=== PATIENT | male | born 1980 | race Caucasian/White ===

== ENCOUNTER 2017-10-26 12:28 | Emergency (ER) | payer OTHER ==
[2017-10-26 12:35] VITALS: TEMP 99.2; BMI 35.7
--- NOTE | 2017-10-26 12:42 | PDOC ---
History of Present Illness - General Chief Complaint: Pain Stated Complaint: ABD PAIN Time Seen by Provider: 10/26/17 12:42 - History of Present Illness Initial Comments: 10/26/17 12:50 Mr. Loera is a 37 yo male w/ pmh of HTN who presents for evaluation of 2 week history of RLQ abdominal pain. Patient reports it has been intermittent over this time period however became worse last night and woke him up from sleep. Patient endorses some diarrhea yesterday as well as some nausea and vomiting today. Patient reports vomit is non-bloody and consists of food he has eaten only. Diarrhea is likewise non-bloody and consists of loose stool. The patient denies chest pain, shortness of breath, headache and dizziness. Denies fever, chills, and constipation. Denies dysuria, frequency, urgency and hematuria. Allergies: NKDA Past History - Past Medical History Allergies/Adverse Reactions: Allergies Allergy/AdvReac Type Severity Reaction Status Date / Time No Known Allergies Allergy Verified 10/26/17 12:35 Home Medications: Ambulatory Orders Ciprofloxacin [Cipro -] 500 mg PO Q12H #10 tablet 10/26/17 COPD: No HTN: Yes - Suicide/Smoking/Psychosocial Hx Smoking History: Never smoked Substance Use Type: Alcohol Review of Systems - Review of Systems Comments:: 10/26/17 13:00 GENERAL/CONSTITUTIONAL: No fever or chills. No weakness. HEAD, EYES, EARS, NOSE AND THROAT: No change in vision. No ear pain or discharge. No sore throat. CARDIOVASCULAR: No chest pain or shortness of breath RESPIRATORY: No cough, wheezing, or hemoptysis. GASTROINTESTINAL:+RLQ pain w/ N/V/D as described. GENITOURINARY: No dysuria, frequency, or change in urination. MUSCULOSKELETAL: No joint or muscle swelling or pain. No neck or back pain. SKIN: No rash NEUROLOGIC: No headache, vertigo, loss of consciousness, or change in strength/ sensation. ENDOCRINE: No increased thirst. No abnormal weight change HEMATOLOGIC/LYMPHATIC: No anemia, easy bleeding, or history of blood clots. ALLERGIC/IMMUNOLOGIC: No hives or skin allergy. *Physical Exam - Vital Signs Last Vital Signs Temp Pulse Resp BP Pulse Ox 99.2 F 118 H 20 157/102 99 10/26/17 12:32 10/26/17 12:32 10/26/17 12:32 10/26/17 12:32 10/26/17 12:32 - Physical Exam Comments: 10/26/17 13:00 GENERAL: Awake, alert, and fully oriented, in no acute distress HEAD: No signs of trauma, normocephalic, atraumatic EYES: PERRLA, EOMI, sclera anicteric, conjunctiva clear ENT: Auricles normal inspection, hearing grossly normal, nares patent, oropharynx clear without exudates. Moist mucosa NECK: Normal ROM, supple, no lymphadenopathy, JVD, or masses LUNGS: No distress, speaks full sentences, clear to auscultation bilaterally HEART: Regular rate and rhythm, normal S1 and S2, no murmurs, rubs or gallops, peripheral pulses normal and equal bilaterally. ABDOMEN: +RLQ TTP. Soft, normoactive bowel sounds. No guarding, no rebound. No masses EXTREMITIES: Normal inspection, Normal range of motion, no edema. No clubbing or cyanosis. NEUROLOGICAL: Cranial nerves II through XII grossly intact. Normal speech, normal gait, no focal sensorimotor deficits SKIN: Warm, Dry, normal turgor, no rashes or lesions noted. ED Treatment Course - LABORATORY CBC & Chemistry Diagram: 10/26/17 12:56 10/26/17 12:56 Medical Decision Making - Medical Decision Making 10/26/17 15:52 Mr. Loera is a 37 yo male w/ pmh as described who presents for evaluation of RLQ pain. Patient noted to have thick walled urinary bladder w/ concern for cystitis and small right sided hydrocele however no appendicitis or other injury. Ciprofloxacin given for treatment and follow-up urology referral provided. No concern for other acute process at this time. Discharging to home. Laboratory Results - last 24 hr 10/26/17 10/26/17 10/26/17 12:56 12:56 12:56 WBC 6.5 RBC 5.27 Hgb 16.4 Hct 48.1 MCV 91.2 MCH 31.1 MCHC 34.1 RDW 13.3 Plt Count 160 MPV 9.9 Absolute Neuts (auto) 4.4 Neutrophils % 67.4 Lymphocytes % 21.8 Monocytes % 9.3 Eosinophils % 0.3 Basophils % 1.2 Nucleated RBC % 0 PT with INR 11.60 INR 1.03 PTT (Actin FS) 27.4 Sodium 138 Potassium 3.5 Chloride 102 Carbon Dioxide 22 Anion Gap 14 BUN 6 L Creatinine 1.0 Creat Clearance w eGFR > 60 Random Glucose 115 H Lactic Acid Calcium 9.2 Total Bilirubin 0.8 AST 80 H ALT 106 H Alkaline Phosphatase 124 H Total Protein 8.9 H Albumin 4.0 Lipase 116 Urine Color Urine Appearance Urine pH Ur Specific [place] Urine Protein Urine Glucose (UA) Urine Ketones Urine Blood Urine Nitrite Urine Bilirubin Urine Urobilinogen Ur Leukocyte Esterase Blood Type Antibody Screen 10/26/17 10/26/17 10/26/17 12:56 12:56 13:01 WBC RBC Hgb Hct MCV MCH MCHC RDW Plt Count MPV Absolute Neuts (auto) Neutrophils % Lymphocytes % Monocytes % Eosinophils % Basophils % Nucleated RBC % PT with INR INR PTT (Actin FS) Sodium Potassium Chloride Carbon Dioxide Anion Gap BUN Creatinine Creat Clearance w eGFR Random Glucose Lactic Acid 1.9 Calcium Total Bilirubin AST ALT Alkaline Phosphatase Total Protein Albumin Lipase Cancelled Urine Color Urine Appearance Urine pH Ur Specific [place] Urine Protein Urine Glucose (UA) Urine Ketones Urine Blood Urine Nitrite Urine Bilirubin Urine Urobilinogen Ur Leukocyte Esterase Blood Type O POSITIVE Antibody Screen Negative 10/26/17 15:00 WBC RBC Hgb Hct MCV MCH MCHC RDW Plt Count MPV Absolute Neuts (auto) Neutrophils % Lymphocytes % Monocytes % Eosinophils % Basophils % Nucleated RBC % PT with INR INR PTT (Actin FS) Sodium Potassium Chloride Carbon Dioxide Anion Gap BUN Creatinine Creat Clearance w eGFR Random Glucose Lactic Acid Calcium Total Bilirubin AST ALT Alkaline Phosphatase Total Protein Albumin Lipase Urine Color Ltyellow Urine Appearance Clear Urine pH 6.0 Ur Specific [place] 1.008 Urine Protein Negative Urine Glucose (UA) Negative Urine Ketones Negative Urine Blood Negative Urine Nitrite Negative Urine Bilirubin Negative Urine Urobilinogen Negative Ur Leukocyte Esterase Negative Blood Type Antibody Screen *DC/Admit/Observation/Transfer Diagnosis at time of Disposition: Cystitis Hydrocele Qualifiers: Hydrocele type: unspecified Qualified Code(s): N43.3 - Hydrocele, unspecified - Discharge Dispostion Disposition: HOME - Prescriptions Prescriptions: Ciprofloxacin [Cipro -] 500 mg PO Q12H #10 tablet - Referrals Referrals: Delvin Sow MD [Primary Care Provider] - Alin Allen MD [Staff Physician] - - Patient Instructions Printed Discharge Instructions: DI for Acute Cystitis, DI for Hydrocele-Adult Additional Instructions: You were evaluated today in the ER for your abdominal pain and found to have bladder infection. A prescription was sent to your pharmacy for treatment; please take all medications as proscribed. We also identified a small hydrocele on ultrasound; please follow-up with urology using provided information next week for further evaluation. Return to ER if any fever, chills, increase in pain , or other concerning symptoms. - Post Discharge Activity
[2017-10-26] MEDS ORDERED: FAMOTIDINE 20 MG/50 ML IVPB 20 MG/50 ML MG IVPB ONE ×2 (12:51→13:02)
[2017-10-26] MEDS ORDERED: SODIUM CHLORIDE 1,000 ML IV STA (12:51)
[2017-10-26] MEDS ORDERED: ONDANSETRON 4 MG/2 ML VIAL IVPUSH ONE (12:51)
[2017-10-26] MEDS ORDERED: ONDANSETRON 4 MG/2 ML VIAL ONE (13:02)
[2017-10-26 13:05] LABS: BASO % 1.2 % (0-2.0); EOS % 0.3 % (0-4.5); HEMATOCRIT 48.1 % (35.4-49); HEMOGLOBIN 16.4 GM/dL (11.7-16.9); LYMPH % 21.8 % (8-40); MCH 31.1 pg (25.7-33.7); MCHC 34.1 g/dl (32.0-35.9); MEAN CELL VOLUME 91.2 fl (80-96); MEAN PLT VOLUME 9.9 fl (7.5-11.1); MONO % 9.3 % (3.8-10.2); NEUT % 67.4 % (42.8-82.8); PLATELET COUNT 160 K/MM3 (134-434); RBC 5.27 M/mm3 (4.00-5.60); RDW 13.3 % (11.9-15.9); WHITE BLOOD COUNT 6.5 K/mm3 (4.0-10.0)
--- NOTE | 2017-10-26 13:06 | PDOC ---
Attending Attestation - Resident Resident Name: Lester Hdz - ED Attending Attestation I have performed the following: I have examined & evaluated the patient, The case was reviewed & discussed with the resident, I agree w/resident's findings & plan, Exceptions are as noted - HPI HPI: 10/26/17 13:04 37-year-old male with past medical history of hypertension presents with 2 weeks of right lower quadrant pain. The patient reports that the pain was imaging the intermittent and burning but now has worsened last 2-3 days. Reports nausea but denies fevers or vomiting. Denies diarrhea. Reports some mild dysuria. Because the pain is worse and came to the ER. - Physicial Exam PE: 10/26/17 13:11 GENERAL: Awake, alert, and fully oriented, in no acute distress HEAD: No signs of trauma EYES: EOMI, sclera anicteric, conjunctiva clear ENT: Auricles normal inspection, hearing grossly normal, nares patent, Moist mucosa NECK: Normal ROM, supple ABDOMEN: Soft, No guarding, no rebound. No masses. TTP RLQ. No CVA tenderness : Uncircucmsized penis. No testicular swelling. No drainage or lesion. Mild tenderness to R testicle. Verticle lie. Cremasteric reflex intact. EXTREMITIES: Normal range of motion, no edema. No clubbing or cyanosis. No cords, erythema, or tenderness NEUROLOGICAL: Cranial nerves II through XII grossly intact. Normal speech, normal gait SKIN: Warm, Dry, normal turgor, no rashes or lesions noted. - Medical Decision Making 10/26/17 13:12 Vital Signs Temp Pulse Resp BP Pulse Ox 99.2 F 118 H 20 157/102 99 10/26/17 12:32 10/26/17 12:32 10/26/17 12:32 10/26/17 12:32 10/26/17 12:32 I suspect pt has cystitis vs. appendicitis vs. renal colic. Differential includes orchitis vs epidydmitis. However, I have very low suspicion for testicular torsion. Labs, scrotal ultrasound, UA/UC, CT abdomen and pelvis, reassess. 10/26/17 14:48 CBC, BMP 10/26/17 12:56 10/26/17 12:56 CMP Sodium 138 mmol/L (136-145) 10/26/17 12:56 Potassium 3.5 mmol/L (3.5-5.1) 10/26/17 12:56 Chloride 102 mmol/L (98-107) 10/26/17 12:56 Carbon Dioxide 22 mmol/L (21-32) 10/26/17 12:56 Anion Gap 14 MMOL/L (8-16) 10/26/17 12:56 BUN 6 mg/dL (7-18) L 10/26/17 12:56 Creatinine 1.0 mg/dL (0.55-1.3) 10/26/17 12:56 Creat Clearance w eGFR > 60 (>60) 10/26/17 12:56 Random Glucose 115 mg/dL (74-106) H 10/26/17 12:56 Lactic Acid 1.9 mmol/L (0.4-2.0) 10/26/17 13:01 Calcium 9.2 mg/dL (8.5-10.1) 10/26/17 12:56 Total Bilirubin 0.8 mg/dL (0.2-1.0) 10/26/17 12:56 AST 80 U/L (15-37) H 10/26/17 12:56 ALT 106 U/L (13-61) H 10/26/17 12:56 Alkaline Phosphatase 124 U/L (45-117) H 10/26/17 12:56 Total Protein 8.9 g/dl (6.4-8.2) H 10/26/17 12:56 Albumin 4.0 g/dl (3.4-5.0) 10/26/17 12:56 Lipase 116 U/L (73-393) 10/26/17 12:56 10/26/17 15:20 Ultrasound demonstrates a small hydrocele on the right. We'll have patient follow up with urologist with the results. CAT scan the abdomen pelvis demonstrates no evidence of kidney stones. Does demonstrate thick-walled urinary bladder. Hepatomegaly with diffuse fatty liver , which I suspect explains the patient's slightly elevated LFTs. We'll obtain a urinalysis. However, we'll presently treated for cystitis. We'll have the patient follow-up as an outpatient for further workup as to why he got a urinary tract infection. 10/26/17 15:49 Urine Test Results Urine Color Ltyellow 10/26/17 15:00 Urine Appearance Clear 10/26/17 15:00 Urine pH 6.0 (5.0-8.0) 10/26/17 15:00 Ur Specific [place] 1.008 (1.001-1.035) 10/26/17 15:00 Urine Protein Negative (NEGATIVE) 10/26/17 15:00 Urine Glucose (UA) Negative (NEGATIVE) 10/26/17 15:00 Urine Ketones Negative (NEGATIVE) 10/26/17 15:00 Urine Blood Negative (NEGATIVE) 10/26/17 15:00 Urine Nitrite Negative (NEGATIVE) 10/26/17 15:00 Urine Bilirubin Negative (<2.0 mg/dL) 10/26/17 15:00 Ur Leukocyte Esterase Negative (NEGATIVE) 10/26/17 15:00 Urine is unremarkable, however, given lower abd pain and CT scan with thickened bladder, will treat with cipro 500 mg BID x 5 days and have him follow up with urologist.
[2017-10-26 13:19] LABS: INR 1.03 (0.83-1.09); PROTHROMBIN TIME (PATIENT) 11.6 SEC (9.7-13.0)
[2017-10-26 13:22] LABS: ACTIVATED PTT 27.4 SECONDS (25.2-36.5)
[2017-10-26 13:36] LABS: ANION GAP 14 MMOL/L (8-16); BILIRUBIN,TOTAL 0.8 mg/dL (0.2-1.0); BLOOD UREA NITROGEN 6 mg/dL (7-18); CALCIUM 9.2 mg/dL (8.5-10.1); CHLORIDE 102 mmol/L (98-107); CO2 22 mmol/L (21-32); GLUCOSE,RANDOM 115 mg/dL (74-106); LIPASE 116 U/L (73-393); POTASSIUM 3.5 mmol/L (3.5-5.1); SGOT/AST 80 U/L (15-37); SGPT/ALT 106 U/L (13-61); SODIUM 138 mmol/L (136-145); TOT PROT 8.9 g/dl (6.4-8.2)
[2017-10-26 13:37] LABS: ALK PHOS 124 U/L (45-117)
[2017-10-26 15:34] LABS: URINE APPEARANCE CLEAR; URINE BILIRUBIN NEGATIVE (<2.0 mg/dL); URINE COLOR LTYELLOW; URINE GLUCOSE (UA) NEGATIVE (NEGATIVE); URINE KETONE NEGATIVE (NEGATIVE); URINE LEUK ESTERASE NEGATIVE (NEGATIVE); URINE NITRITE NEGATIVE (NEGATIVE); URINE PROTEIN NEGATIVE (NEGATIVE); URINE UROBILINOGEN NEGATIVE mg/dL (0.2-1.0)
[2017-10-26] MEDS ORDERED: CIPROFLOXACIN 500 MG TABLET (RESTRICTED TO ID) PO ONE (15:49)
[2017-10-26 16:28] VITALS: BP 137/92; PULSE 95
== END 2017-10-26 16:29 | disposition home or self-care (01) ==
LOC: JER 12:28
PROC: 3E033GC Introduction of Other Therapeutic Substance into Peripheral Vein, Percutaneous Approach (ICD-10-PCS; principal; 2017-10-26)
PROC: 3E0337Z Introduction of Electrolytic and Water Balance Substance into Peripheral Vein, Percutaneous Approach (ICD-10-PCS; 2017-10-26)
DX: N43.3 Hydrocele, unspecified (principal); N30.90 Cystitis, unspecified without hematuria
CPT/HCPCS: 36415; 74176; 76870-TC; 80053; 81003; 83605; 83690; 85025; 85610; 85730; 86850; 86900; 86901; 87086; 99283-25; J7030

== ENCOUNTER 2018-01-15 13:11 | Emergency (ER) | payer BC, OTHER ==
--- NOTE | 2018-01-15 13:21 | PDOC ---
History of Present Illness - General Chief Complaint: Blood Pressure Problem Stated Complaint: HIGH BLOOD PRESSURE Time Seen by Provider: 01/15/18 13:21 History Source: Patient Exam Limitations: No Limitations - History of Present Illness Initial Comments: 01/15/18 13:35 37 year old male with PMH ETOH abuse, HTN, HLD BIBA to ED for hypertension. Pt was seen and evaluated by Dr. Sow today for headache, nausea/vomiting, was found to be hypertensive (180/120) and was sent to ED. Pt reported his last drink was yesterday and that he usually drinks 4-5 beers a day. Pt stated he stopped taking his BP medications x2 weeks ago, because he lost the bottle. He denied chest pain, shortness of breath, hematemesis, abdominal pain, diarrhea, fever, weakness, numbness/tingling, visual changes, hematuria, seizures. Allergies:NKDA Past History - Past Medical History Allergies/Adverse Reactions: Allergies Allergy/AdvReac Type Severity Reaction Status Date / Time No Known Allergies Allergy Verified 01/15/18 13:20 Home Medications: Ambulatory Orders Ciprofloxacin [Cipro -] 500 mg PO Q12H #10 tablet 10/26/17 COPD: No HTN: Yes - Suicide/Smoking/Psychosocial Hx Smoking History: Never smoked Substance Use Type: Alcohol Review of Systems - Review of Systems Able to Perform ROS?: Yes Comments:: 01/15/18 13:42 General: denied fever, chills, night sweats, generalized weakness. HEENT: denied sore throat, rhinorrhea, ear pain. Heart: denied chest pain, palpitations, syncope, lower extremity swelling, diaphoresis. Respiratory: denied shortness of breath, cough, sputum production, hemoptysis. Abdomen: admitted to nausea, vomiting. denied abdominal pain, diarrhea, constipation, blood in stool. : denied dysuria, increased urinary frequency, hematuria, urinary incontinence , flank pain. Back: denied back pain. Musculoskeletal: denied joint pain, muscle pain, joint swelling. Neurological: admitted to headache, tremors. denied seizure, dizziness, numbness , tingling, weakness. Skin: denied rash, laceration, abrasion. *Physical Exam - Physical Exam Comments: 01/15/18 13:43 Constitutional: Well-nourished, Well-developed, appearing stated age. HEENT: head is normocephalic, atraumatic. EOMI. PERRLA. tongue tremulous. Neck: supple. Full ROM. no JVD. Heart: tachycardic. regular rhythm. no murmurs, rubs or gallops. Lungs: clear to auscultation bilaterally. no crackles, rhonchi or wheezing. no stridor. Abdomen: soft, nontender. normal bowel sounds. no rebound, guarding, masses. Extremities: Peripheral pulses intact. No lower extremity edema. Neurological: CN 2-12 grossly intact. Moves all four extremities. no asterixis. mild tremors to bilateral hands. Psych: awake, alert, oriented x3. Follows commands. Answers questions appropriately. ED Treatment Course - LABORATORY CBC & Chemistry Diagram: 01/15/18 13:30 01/15/18 13:30 Medical Decision Making - Medical Decision Making 01/15/18 13:44 37 year old male with above PMH BIBA to ED from PCP for hypertensive urgency. ETOH abuser, last drink last night. Noncompliant with HTN medications. Initial Vital Signs Temp Pulse Resp BP Pulse Ox 99.6 F 118 H 20 177/118 H 100 01/15/18 13:20 01/15/18 13:20 01/15/18 13:20 01/15/18 13:20 01/15/18 13:20 Afebrile. Tachycardic. Hypertensive. No hypoxia on room air. No tachypnea. Repeat vitals 1344: - BP 158/108 - HR 113 - SpO2 96% on room air EKG performed at 1331: rate 112, regular rhythm, normal axis, normal intervals, flat T in III, aVF. No prior to compare. Pending troponin, CBC, CMP, coags, ETOH level, acetaminophen level, salicyclate level. Librium 50 mg ordered. Ativan 2 mg ordered. Banana bag ordered. 01/15/18 15:15 Pt reassessed, sleeping comfortably, arousable to voice. Vital Signs Temperature 98.6 F 01/15/18 14:50 Pulse Rate 68 01/15/18 14:50 Respiratory Rate 16 01/15/18 14:50 Blood Pressure 135/89 01/15/18 14:50 O2 Sat by Pulse Oximetry (%) 98 01/15/18 14:50 CBC WBC 5.8 K/mm3 (4.0-10.0) 01/15/18 13:30 RBC 5.48 M/mm3 (4.00-5.60) 01/15/18 13:30 Hgb 16.7 GM/dL (11.7-16.9) 01/15/18 13:30 Hct 50.2 % (35.4-49) H 01/15/18 13:30 MCV 91.4 fl (80-96) 01/15/18 13:30 MCH 30.5 pg (25.7-33.7) 01/15/18 13:30 MCHC 33.4 g/dl (32.0-35.9) 01/15/18 13:30 RDW 13.2 % (11.9-15.9) 01/15/18 13:30 Plt Count 154 K/MM3 (134-434) 01/15/18 13:30 MPV 9.9 fl (7.5-11.1) 01/15/18 13:30 Absolute Neuts (auto) 4.0 K/mm3 (1.5-8.0) 01/15/18 13:30 Neutrophils % 68.5 % (42.8-82.8) 01/15/18 13:30 Lymphocytes % 18.5 % (8-40) 01/15/18 13:30 Monocytes % 11.3 % (3.8-10.2) H 01/15/18 13:30 Eosinophils % 0.4 % (0-4.5) 01/15/18 13:30 Basophils % 1.3 % (0-2.0) 01/15/18 13:30 Nucleated RBC % 0 % (0-0) 01/15/18 13:30 No leukocytosis. No anemia. CMP Sodium 135 mmol/L (136-145) L 01/15/18 13:30 Potassium 3.7 mmol/L (3.5-5.1) 01/15/18 13:30 Chloride 99 mmol/L (98-107) 01/15/18 13:30 Carbon Dioxide 26 mmol/L (21-32) 01/15/18 13:30 Anion Gap 10 MMOL/L (8-16) 01/15/18 13:30 BUN 6 mg/dL (7-18) L 01/15/18 13:30 Creatinine 0.9 mg/dL (0.55-1.3) 01/15/18 13:30 Creat Clearance w eGFR > 60 (>60) 01/15/18 13:30 Random Glucose 101 mg/dL (74-106) 01/15/18 13:30 Calcium 8.7 mg/dL (8.5-10.1) 01/15/18 13:30 Magnesium 2.4 mg/dL (1.8-2.4) 01/15/18 13:30 Total Bilirubin 1.0 mg/dL (0.2-1) 01/15/18 13:30 AST 80 U/L (15-37) H 01/15/18 13:30 ALT 99 U/L (13-61) H 01/15/18 13:30 Alkaline Phosphatase 117 U/L (45-117) 01/15/18 13:30 Troponin I < 0.02 ng/ml (0.00-0.05) 01/15/18 13:30 Total Protein 8.7 g/dl (6.4-8.2) H 01/15/18 13:30 Albumin 4.1 g/dl (3.4-5.0) 01/15/18 13:30 Lipase 154 U/L (73-393) 01/15/18 13:30 Mild hyponatremia. - Pt given banana bag No MARKIE. Mild transaminitis. Troponin normal. Normal lipase. Salicyclated negative. Acetaminophen level negative. ETOH level negative. 01/15/18 15:18 Pt informed of results and given the option of going to detox. Pt informed of risk of seizure/ if he were to go home and not continue drinking. Pt given time to discuss with . 01/15/18 15:58 Detox called, they stated they are full and he could call tomorrow and see if they have any beds open. List of other detox centers given to patient. Librium 50 mg PO ordered. Pt to be discharged. Pt again informed of the risk of going home and not following up with detox, including seizures and . Pt expressed understanding and stated he would follow up with a detox center. *DC/Admit/Observation/Transfer Diagnosis at time of Disposition: Alcohol withdrawal - Discharge Dispostion Disposition: HOME Condition at time of disposition: Improved Decision to Admit order: No - Referrals Referrals: Delvin Sow MD [Primary Care Provider] - - Patient Instructions Additional Instructions: You were seen today for high blood pressure. You are withdrawaling from alcohol. You have been given medication to treat the withdrawal until tomorrow. Our detox center is full today, but they stated you can call tomorrow morning and ask if they have available beds. ; Intake Line: . I have provided you with a list of other detox centers in the area. It is very important that you call one of them and gain acceptance tomorrow. If you stop drinking abruptly you can have a seizure and . Fill your blood pressure medication prescriptions and take them as your primary care doctor has advised. Return to the Emergency Department for chest pain, shortness of breath, shaking of hands, seizure, shaking of tongue, hallucinations or any other new, worsening or concerning symptoms. Follow up with your primary care doctor in 2-3 days or after detox. Hoy te vieron por presin arterial laura. Te ests retirando del alcohol. Te barrow dado medicamentos para tratar la abstinencia hasta maana. Nuestro centro de desintoxicacin est lleno hoy, colby dijeron que puedes llamar maana por la maana y preguntar si tienen ying disponibles. ; Intake Line: . Le he proporcionado darren lista de otros centros de desintoxicacin en el [place]. Es muy importante que llame a roula de ellos y obtenga la aceptacin maana. Si dejas de beber bruscamente, puedes tener darren convulsin y morir. Llene dannie medicamentos recetados para la presin arterial y tmelos murray le haya recomendado loza mdico de atencin primaria. Regrese al [facility]art[facility] Emergencias para el dolor en el pecho, falta de aliento, temblor de maria isabel, convulsiones, temblor de la lengua, alucinaciones o cualquier otro sntoma nuevo , que empeore o relacionado. Stewart un seguimiento con loza mdico de atencin primaria en 2-3 landon o despus de la desintoxicacin. - Post Discharge Activity
[2018-01-15 13:30] VITALS: BMI 35.7
[2018-01-15] MEDS ORDERED: FOLIC ACID INJECTION - 1 MG, THIAMINE HCL 100 MG, MULTIVIT INJECTION ADULT 10 ML in SOD... IVPB ONE (13:36)
[2018-01-15] MEDS ORDERED: chlordiazePOXIDE HCL 25 MG CAPSULE PO ONE ×2 (13:40→16:01)
--- NOTE | 2018-01-15 13:40 | PDOC ---
Attending Attestation - HPI HPI: 01/15/18 15:07 The patient is a 37 year old male with a significant past medical Hx of ETOH abuse, HTN (noncompliant with meds x 2 months), HLD BIBA to ED for evaluation of high blood pressure sent by Dr. Sow today. The patient complains of headache, nausea/vomiting today. The patient reports his last ETOH drink was yesterday and that he usually drinks 4-5 beers a day. He denied chest pain, shortness of breath, hematemesis, abdominal pain, diarrhea, fever, weakness, numbness/tingling, visual changes, hematuria. - Medical Decision Making 01/15/18 15:09 Documentation prepared by Winter Dahl, acting as medical claims processor for Merced Marshall MD <Winter Dahl - Last Filed: 01/15/18 15:07> - Resident Resident Name: Sofia Shell - ED Attending Attestation I have performed the following: I have examined & evaluated the patient, The case was reviewed & discussed with the resident, I agree w/resident's findings & plan, Exceptions are as noted - Physicial Exam PE: GENERAL: Awake, alert, and fully oriented, in no acute distress HEAD: No signs of trauma EYES: PERRLA, EOMI, sclera anicteric, conjunctiva clear ENT: Auricles normal inspection, hearing grossly normal, nares patent, oropharynx clear without exudates. Moist mucosa NECK: Normal ROM, supple, no lymphadenopathy, JVD, or masses LUNGS: Breath sounds equal, clear to auscultation bilaterally. No wheezes, and no crackles HEART: Regular rate and rhythm, normal S1 and S2, no murmurs, rubs or gallops ABDOMEN: Soft, protuberant, nontender, normoactive bowel sounds. No guarding, no rebound. No masses EXTREMITIES: +Mild tremors in the hands B/L. Normal range of motion, no edema. No clubbing or cyanosis. No cords, erythema, or tenderness NEUROLOGICAL: Cranial nerves II through XII grossly intact. Normal speech, normal gait SKIN: Warm, Dry, normal turgor, no rashes or lesions noted. - Medical Decision Making Pt with signs of withdrawal. Improved with ativan, librium. Will discuss detox. <Merced Marshall - Last Filed: 01/15/18 15:47>
[2018-01-15] MEDS ORDERED: chlordiazePOXIDE HCL 25 MG CAPSULE ONE ×2 (13:42→16:19)
[2018-01-15] MEDS ORDERED: LORazepam 2 MG/ML SDV VIAL ONE (13:42)
[2018-01-15 13:49] LABS: BASO % 1.3 % (0-2.0); EOS % 0.4 % (0-4.5); HEMATOCRIT 50.2 % (35.4-49); HEMOGLOBIN 16.7 GM/dL (11.7-16.9); LYMPH % 18.5 % (8-40); MCH 30.5 pg (25.7-33.7); MCHC 33.4 g/dl (32.0-35.9); MEAN CELL VOLUME 91.4 fl (80-96); MEAN PLT VOLUME 9.9 fl (7.5-11.1); MONO % 11.3 % (3.8-10.2); NEUT % 68.5 % (42.8-82.8); PLATELET COUNT 154 K/MM3 (134-434); RBC 5.48 M/mm3 (4.00-5.60); RDW 13.2 % (11.9-15.9); WHITE BLOOD COUNT 5.8 K/mm3 (4.0-10.0)
[2018-01-15] MEDS ORDERED: SODIUM CHLORIDE 1,000 ML IV STA (13:56)
[2018-01-15 14:17] LABS: LIPASE 154 U/L (73-393)
[2018-01-15 14:19] LABS: INR 1.07 (0.83-1.09); PROTHROMBIN TIME (PATIENT) 12.6 SEC (9.7-13.0)
[2018-01-15 14:37] LABS: ALBUMIN 4.1 g/dl (3.4-5.0); ALK PHOS 117 U/L (45-117); ANION GAP 10 MMOL/L (8-16); BLOOD UREA NITROGEN 6 mg/dL (7-18); CALCIUM 8.7 mg/dL (8.5-10.1); CHLORIDE 99 mmol/L (98-107); CO2 26 mmol/L (21-32); CREATININE 0.9 mg/dL (0.55-1.3); GLUCOSE,RANDOM 101 mg/dL (74-106); MAGNESIUM 2.4 mg/dL (1.8-2.4); POTASSIUM 3.7 mmol/L (3.5-5.1); SGOT/AST 80 U/L (15-37); SGPT/ALT 99 U/L (13-61); SODIUM 135 mmol/L (136-145); TOT PROT 8.7 g/dl (6.4-8.2)
[2018-01-15 14:51] VITALS: BP 135/89; PULSE 68; TEMP 98.6
--- NOTE | 2018-01-16 11:47 | EKG ---
Test Reason : Blood Pressure : / mmHG Vent. Rate : 112 BPM Atrial Rate : 112 BPM P-R Int : 152 ms QRS Dur : 074 ms QT Int : 320 ms P-R-T Axes : 041 063 012 degrees QTc Int : 436 ms SINUS TACHYCARDIA OTHERWISE NORMAL ECG WHEN COMPARED WITH ECG OF 28-JAN-2002 05:00, INVERTED T WAVES HAVE REPLACED NONSPECIFIC T WAVE ABNORMALITY IN INFERIOR LEADS T WAVE AMPLITUDE HAS DECREASED IN ANTERIOR LEADS Confirmed by VANESSA LORENZ, SIMIN ([id number]) on 01/16/2018 11:47:02 AM Referred By: Confirmed By:SIMIN MENDEZ MD
== END 2018-01-15 16:22 | disposition home or self-care (01) ==
LOC: JER 13:11
DX: F10.239 Alcohol dependence with withdrawal, unspecified (principal); I10 Essential (primary) hypertension; E78.5 Hyperlipidemia, unspecified
CPT/HCPCS: 36415; 80053; 80307; 83690; 83735; 84484; 85025; 85610; 85730; 93005; 93010; 99285-25; J7030

== ENCOUNTER 2019-04-13 15:57 | Emergency (ER) | payer BC, OTHER ==
--- NOTE | 2019-04-13 16:11 | PDOC ---
Rapid Medical Evaluation Time Seen by Provider: 04/13/19 16:09 Medical Evaluation: Allergies Allergy/AdvReac Type Severity Reaction Status Date / Time No Known Allergies Allergy Verified 01/15/18 13:20 04/13/19 16:10 CC: RLQ pain x1 day. +n/v. denies diarrhea; daily ETOH-12 beers PE: RLQ tenderness Orders: abdominal w/u Patient will proceed to ED for further evaluation. 04/13/19 16:11 Discharge Disposition - Diagnosis Abdominal pain - Referrals - Patient Instructions - Post Discharge Activity
[2019-04-13] MEDS ORDERED: ONDANSETRON 4 MG/2 ML VIAL IVPUSH ONE (16:12)
[2019-04-13 16:41] VITALS: BMI 38.2
[2019-04-13 17:09] LABS: BASO % 0.5 % (0-2.0); EOS % 0.4 % (0-4.5); HEMATOCRIT 45.1 % (35.4-49); HEMOGLOBIN 15.1 GM/dL (11.7-16.9); LYMPH % 13.6 % (8-40); MCH 31.2 pg (25.7-33.7); MCHC 33.5 g/dl (32.0-35.9); MEAN PLT VOLUME 10.2 fl (7.5-11.1); MONO % 9.4 % (3.8-10.2); NEUT % 76.1 % (42.8-82.8); PH,URINE 7.5 (5.0-8.0); PLATELET COUNT 177 K/MM3 (134-434); RBC 4.85 M/mm3 (4.00-5.60); RDW 13.4 % (11.9-15.9); URINE APPEARANCE CLEAR; URINE BILIRUBIN NEGATIVE (NEGATIVE); URINE COLOR YELLOW; URINE GLUCOSE (UA) NEGATIVE (NEGATIVE); URINE KETONE NEGATIVE (NEGATIVE); URINE LEUK ESTERASE NEGATIVE (NEGATIVE); URINE NITRITE NEGATIVE (NEGATIVE); URINE PROTEIN NEGATIVE (NEGATIVE); URINE UROBILINOGEN 0.2 mg/dL (0.2-1.0); WHITE BLOOD COUNT 11.5 K/mm3 (4.0-10.0)
[2019-04-13] MEDS ORDERED: SODIUM CHLORIDE 0.9% 500 ML INFUS.BAG IV ONE (17:25)
[2019-04-13] MEDS ORDERED: ONDANSETRON 4 MG/2 ML VIAL ONE (17:31)
--- NOTE | 2019-04-13 17:33 | PDOC ---
History of Present Illness - General Chief Complaint: Pain, Acute Stated Complaint: ABD PAIN Time Seen by Provider: 04/13/19 16:09 History Source: Patient Exam Limitations: No Limitations - History of Present Illness Initial Comments: 04/13/19 17:26 Patient is a 38-year-old male who presents to the ED with complaint of left- sided and right lower quadrant abdominal pain since yesterday. He states that he has been vomiting several times. He has not been taking anything for his pain. He does admit to drinking alcohol daily for the last 3 years. He usually drinks about 6 beers a night but last night drink about 12. He denies any visual changes. He does admit to having some dysuria and frequency without any hematuria. He denies any fevers or chills. Past History - Past Medical History Allergies/Adverse Reactions: Allergies Allergy/AdvReac Type Severity Reaction Status Date / Time No Known Allergies Allergy Verified 04/13/19 16:41 Home Medications: Ambulatory Orders Ciprofloxacin [Cipro -] 500 mg PO Q12H #10 tablet 10/26/17 COPD: No HTN: Yes - Psycho Social/Smoking Cessation Hx Smoking History: Never smoked Have you smoked in the past 12 months: No Hx Alcohol Use: Yes (DAILY) Drug/Substance Use Hx: No Substance Use Type: Alcohol Review of Systems - Review of Systems Comments:: 04/13/19 17:28 - Review of Systems Able to Perform ROS?: Yes Constitutional: No: Fever, Chills, Loss of Appetite, Night Sweats, Weakness HEENTM: No: Eye Pain, Vision changes, Ear Pain, Throat Pain, Throat Swelling, Mouth Pain, Difficulty Swallowing Respiratory: No: Cough, Shortness of Breath, Wheezing, Sputum Production Cardiac (ROS): No: Chest Pain, Chest Tightness, Palpitations, Irregular Heart Beat, Edema ABD/GI: No: Diarrhea; positive: Nausea, Vomiting, Abdominal Pain : No Hematuria, No Urgency, No Penile Discharge/Pain; positive dysuria and frequency Musculoskeletal: No: Muscle Pain, Back Pain, Joint Pain, Muscle Weakness, Neck Pain Integumentary: No: Lesions, Rash Neurological: No: Headache, Numbness, Tingling, Weakness, Speech Difficulties *Physical Exam - Vital Signs Last Vital Signs Temp Pulse Resp BP Pulse Ox 99.1 F 129 H 16 154/89 92 L 04/13/19 16:39 04/13/19 16:39 04/13/19 16:39 04/13/19 16:39 04/13/19 16:39 - Physical Exam 04/13/19 17:28 - Physical Exam General Appearance: Nourished, Appropriately Dressed, No Distress HEENT: EOMI, Normal Voice, No Muffled/Hoarse voice, No Nasal Congestion, No Rhinorrhea, Hearing Grossly Normal Neck: Supple, No Lymphadenopathy (R), No Lymphadenopathy (L), No Rigidity, No Decreased range of motion Respiratory/Chest: Lungs Clear, Normal Breath Sounds. No Respiratory Distress, No Accessory Muscle Use Cardiovascular: Regular Rhythm, Regular Rate, S1, S2 Gastrointestinal/Abdominal: Normal Bowel Sounds, Soft. No Guarding, No Rebound, No Rigidity; positive mid left abdominal and right lower quadrant abdominal tenderness to palpation. No rebound or rigidity. Positive voluntary guarding. Abdomen nontympanitic. Abdomen moderately distended. No CVA tenderness bilaterally. Moderate suprapubic abdominal tenderness to palpation. Musculoskeletal: Normal Inspection. No Decreased Range of Motion Extremity: Normal Capillary Refill, Normal Inspection Integumentary: Normal Color, Dry. No Rash Neurologic: cardiovascular rn II-XII NML intact, Fully Oriented, Alert, Normal Mood/Affect, Normal Response ED Treatment Course - LABORATORY CBC & Chemistry Diagram: 04/13/19 16:24 04/13/19 16:24 - ADDITIONAL ORDERS Additional order review: Laboratory Results 04/13/19 16:24 Urine Color Yellow Urine Appearance Clear Urine pH 7.5 D Ur Specific [place] 1.003 L Urine Protein Negative Urine Glucose (UA) Negative Urine Ketones Negative Urine Blood Negative Urine Nitrite Negative Urine Bilirubin Negative Urine Urobilinogen 0.2 Ur Leukocyte Esterase Negative 04/13/19 16:24 RBC 4.85 MCV 93.0 MCHC 33.5 RDW 13.4 MPV 10.2 Neutrophils % 76.1 Lymphocytes % 13.6 D Monocytes % 9.4 Eosinophils % 0.4 Basophils % 0.5 - RADIOLOGY Radiology Studies Ordered: Category Date Time Status ABDOMEN & PELVIS CT WITH CONTR [CT] Stat CT Scan 04/13/19 16:12 Ordered Medical Decision Making - Medical Decision Making 04/13/19 17:30 Assessment: Patient is a 38-year-old male with abdominal pain and dysuria. Plan: -Saline lock and fluids given -Labs ordered -Zofran ordered -CT abdomen and pelvis with IV contrast -Will reassess 04/13/19 19:00 Pt is pending his CT scan. He is more comfortable at this time. He has been endorsed to [facility] for further evaluation and treatment. The patient is stable at the time of endorsement. Discharge - Discharge Information Problems reviewed: Yes Clinical Impression/Diagnosis: Abdominal pain Qualifiers: Abdominal location: generalized Qualified Code(s): R10.84 - Generalized abdominal pain Condition: Stable - Follow up/Referral Referrals: Delvin Sow MD [Primary Care Provider] - - Patient Discharge Instructions - Post Discharge Activity
[2019-04-13 17:42] LABS: ALBUMIN 3.6 g/dl (3.4-5.0); BILIRUBIN,TOTAL 1.4 mg/dL (0.2-1); BLOOD UREA NITROGEN 6.7 mg/dL (7-18); CALCIUM 8.7 mg/dL (8.5-10.1); CREATININE 0.8 mg/dL (0.55-1.3); POTASSIUM 3.5 mmol/L (3.5-5.1); TOT PROT 8.4 g/dl (6.4-8.2)
--- NOTE | 2019-04-13 19:20 | PDOC ---
*Physical Exam - Vital Signs Last Vital Signs Temp Pulse Resp BP Pulse Ox 99.1 F 129 H 16 154/89 92 L 04/13/19 16:39 04/13/19 16:39 04/13/19 16:39 04/13/19 16:39 04/13/19 16:39 - Physical Exam General Appearance: Yes: Appropriately Dressed Respiratory/Chest: positive: Lungs Clear, Normal Breath Sounds ED Treatment Course - LABORATORY CBC & Chemistry Diagram: 04/13/19 16:24 04/13/19 16:24 - ADDITIONAL ORDERS Additional order review: Laboratory Results 04/13/19 04/13/19 16:24 16:24 Sodium 135 L Potassium 3.5 Chloride 100 Carbon Dioxide 26 Anion Gap 10 BUN 6.7 L Creatinine 0.8 Est GFR (CKD-EPI)AfAm 129.51 Est GFR (CKD-EPI)NonAf 111.74 Random Glucose 104 Calcium 8.7 Total Bilirubin 1.4 H AST 68 H ALT 61 Alkaline Phosphatase 135 H Total Protein 8.4 H Albumin 3.6 Lipase 142 Urine Color Yellow Urine Appearance Clear Urine pH 7.5 D Ur Specific [place] 1.003 L Urine Protein Negative Urine Glucose (UA) Negative Urine Ketones Negative Urine Blood Negative Urine Nitrite Negative Urine Bilirubin Negative Urine Urobilinogen 0.2 Ur Leukocyte Esterase Negative 04/13/19 16:24 RBC 4.85 MCV 93.0 MCHC 33.5 RDW 13.4 MPV 10.2 Neutrophils % 76.1 Lymphocytes % 13.6 D Monocytes % 9.4 Eosinophils % 0.4 Basophils % 0.5 - Medications Given in the ED: ED Medications Discontinued Medications Generic Name Dose Route Start Last Admin Trade Name Freq PRN Reason Stop Dose Admin Ondansetron HCl 4 mg 04/13/19 16:12 04/13/19 18:00 Zofran Injection IVPUSH 04/13/19 16:13 4 mg ONCE ONE Administration Sodium Chloride 1,000 ml 04/13/19 17:25 04/13/19 18:00 Normal Saline - IV 04/13/19 17:26 1,000 ml ONCE ONE Administration Medical Decision Making - Medical Decision Making 04/13/19 22:42 CTAP:Pancreas gallbladder adrenal glands and kidneys demonstrate no discrete abnormality. Several stable mildly prominent Homme homogenous zeina hepatis and upper retroperitoneal lymph nodes are seen presumably hyperplastic in nature. Appendix appears unremarkable. There is possible sigmoid diverticulosis. 04/13/19 22:43 Patient advised to reduce alcohol intake. Patient noted to have some mild withdrawal symptoms. Librium given. Patient also received a banana bag. Will revitalize and reevaluate. Discussed with patient to follow-up with gastroenterology for incidental findings. Patient verbalized understanding. Strict return precautions were given to the patient Discharge - Discharge Information Problems reviewed: Yes Clinical Impression/Diagnosis: Abdominal pain Qualifiers: Abdominal location: generalized Qualified Code(s): R10.84 - Generalized abdominal pain Alcohol withdrawal Qualifiers: Complication of substance-induced condition: uncomplicated Qualified Code(s): F10.230 - Alcohol dependence with withdrawal, uncomplicated Condition: Stable Disposition: HOME - Follow up/Referral Referrals: Delvin Sow MD [Primary Care Provider] - Rayo Dudley MD [Staff Physician] - Call tomorrow - Patient Discharge Instructions Patient Printed Discharge Instructions: DI for Alcohol Abuse Additional Instructions: It is very important that you reduce and refrain from drinking alcohol. Please follow-up with a umbrella tipper machine as soon as possible. Drink plenty of fluids. Return to the emergency room for any worsening symptoms - Post Discharge Activity Work/Back to School Note: Back to Work
[2019-04-13] MEDS ORDERED: SODIUM CHLORIDE 1,000 ML IV SCH (19:30)
[2019-04-13] MEDS ORDERED: chlordiazePOXIDE HCL 25 MG CAPSULE PO ONE (20:05)
[2019-04-13] MEDS ORDERED: FOLIC ACID INJECTION - 1 MG, THIAMINE HCL 100 MG, MULTIVIT INJECTION ADULT 10 ML in SOD... IVPB ONE (20:20)
[2019-04-13] MEDS ORDERED: chlordiazePOXIDE HCL 25 MG CAPSULE ONE (20:38)
[2019-04-13 20:48] VITALS: TEMP 98.4
[2019-04-13 23:01] VITALS: BP 147/103; PULSE 103
--- NOTE | 2019-04-14 08:44 | EKG ---
Test Reason : Blood Pressure : / mmHG Vent. Rate : 128 BPM Atrial Rate : 128 BPM P-R Int : 150 ms QRS Dur : 074 ms QT Int : 306 ms P-R-T Axes : 054 078 025 degrees QTc Int : 446 ms SINUS TACHYCARDIA OTHERWISE NORMAL ECG WHEN COMPARED WITH ECG OF 15-JAN-2018 13:31, NO SIGNIFICANT CHANGE WAS FOUND Confirmed by MD LIVIA, JOSH ([id number]) on 04/14/2019 8:44:23 AM Referred By: Confirmed By:JOSH BHAKTA MD
== END 2019-04-13 23:10 | disposition home or self-care (01) ==
LOC: JER 15:57
PROC: 3E033GC Introduction of Other Therapeutic Substance into Peripheral Vein, Percutaneous Approach (ICD-10-PCS; principal; 2019-04-13)
DX: R10.84 Generalized abdominal pain (principal)
CPT/HCPCS: 36415; 74177-TC; 80053; 81003; 83690; 85025; 87086; 93005; 93010; 99285-25; J7030; Q9967